=== PATIENT | male | born 1985 | race Caucasian/White ===

== ENCOUNTER 2020-01-10 09:06 | Inpatient (IN) | payer BC ==
[2020-01-10] MEDS ORDERED: SODIUM CHLORIDE 0.9% 1,000 ML IV STA (09:38)
[2020-01-10] MEDS ORDERED: MORPHINE SULFATE 4 MG/ML SYRINGE IVP STA (09:42)
[2020-01-10] MEDS ORDERED: LEVOFLOXACIN 500MG-D5W PMX 500 MG in DEXTROSE/WATER 1 100ML.BAG IVPB STA (09:53)
[2020-01-10] MEDS ORDERED: metroNIDAZOLE-NS PMX 500 MG in SALINE 1 100ML.BAG IVPB STA (09:53)
[2020-01-10 09:56] LABS: Appearance,Urine Clear (Clear); Bilirubin,Urine Negative (Negative); Blood,Urine Negative (Negative); Color,Urine Yellow; Glucose,Urine (UA) Negative (Negative); Ketones,Urine Negative (Negative); Leukocyte Esterase,Urine Negative (Negative); Nitrite,Urine Negative (Negative); PH, Urine 5.5 (5.0-8.0); Protein,Urine Trace (Negative); Specific Gravity,Urine 1.023 (1.001-1.035); Urobilinogen,Urine <2.0 mg/dL (<2.0)
[2020-01-10 10:00] LABS: Basophils % (A) 0 %; Eosinophils # (A) 0.3 k/uL (0-0.7); Eosinophils % (A) 3 %; HCT 42.8 % (39.0-53.0); HGB 14.2 gm/dL (13.0-17.5); Lymphocytes % (A) 19 %; MCH 27.5 pg (25.0-35.0); MCHC 33.2 g/dL (31.0-37.0); MCV 82.9 fL (80.0-100.0); Mean Platelet Volume 7.8; Monocytes # (A) 0.6 k/uL (0-1.0); Monocytes % (A) 6 %; Neutrophils % (A) 69 %; Platelet Count 322 k/uL (150-450); RBC 5.17 m/uL (4.30-5.90); RDW 13.3 % (11.5-15.5); WBC 10.3 k/uL (3.8-10.6)
[2020-01-10 10:07] LABS: ALT 59 U/L (4-49); AST 44 U/L (17-59); African American GFR (CKD) >90 (>60 ml/min/1.73 sqM); Albumin 4.5 g/dL (3.5-5.0); Alkaline Phosphatase 91 U/L (38-126); Amylase 35 U/L (30-110); Anion Gap 11 mmol/L; Blood Urea Nitrogen 17 mg/dL (9-20); Calcium 9.5 mg/dL (8.4-10.2); Carbon Dioxide 27 mmol/L (22-30); Chloride 99 mmol/L (98-107); Glucose 92 mg/dL (74-99); Non-African American GFR(CKD) >90 (>60 ml/min/1.73 sqM); Sodium 137 mmol/L (137-145); Total Bilirubin 0.7 mg/dL (0.2-1.3); Total Protein 8.2 g/dL (6.3-8.2)
[2020-01-10 10:10] LABS: Potassium 5.2 mmol/L (3.5-5.1)
--- NOTE | 2020-01-10 10:25 | XR ---
KUB HISTORY: Lower abdominal pain Frontal KUB submitted on 2 images Lung bases are clear. There are air-fluid levels without bowel distention. Bone mineralization is nor mal. No pathologic calcification evident. IMPRESSION: Correlate for ileus or enteritis. Follow-up as indicated.
--- NOTE | 2020-01-10 11:10 | ED ---
General Adult HPI - General Chief complaint: Abdominal Pain Stated complaint: Abd Pain Time Seen by Provider: 01/10/20 09:26 Source: patient, RN notes reviewed Mode of arrival: ambulatory Limitations: no limitations - History of Present Illness Initial comments: 34-year-old male presents to the emergency department for a chief complaint of abdominal pain times about 9 days. Patient states the pain is in the left lower pubic area. States that 6 days ago he was seen at [facility] and diagnosed with diverticulitis. States that he was given Augmentin but that pain has seemed to worsen. He denies fevers. He denies diarrhea. He does admit to mild nausea.Patient has no other complaints at this time including shortness of breath, chest pain, nausea or vomiting, headache, or visual changes. - Related Data Home Medications Medication Instructions Recorded Confirmed Amoxic-Pot Clav 875-125Mg 1 tab PO Q12HR 01/10/20 01/10/20 [Augmentin 875-125] Escitalopram [Lexapro] 10 mg PO HS 01/10/20 01/10/20 Allergies Allergy/AdvReac Type Severity Reaction Status Date / Time No Known Allergies Allergy Verified 01/10/20 10:24 Review of Systems ROS Statement: Those systems with pertinent positive or pertinent negative responses have been documented in the HPI. ROS Other: All systems not noted in ROS Statement are negative. Past Medical History Past Medical History: Hypertension History of Any Multi-Drug Resistant Organisms: None Reported Past Surgical History: No Surgical Hx Reported Past Psychological History: No Psychological Hx Reported Smoking Status: Never smoker Past Alcohol Use History: None Reported Past Drug Use History: None Reported General Exam Limitations: no limitations General appearance: alert, in no apparent distress Head exam: Present: atraumatic, normocephalic, normal inspection Eye exam: Present: normal appearance, PERRL, EOMI. Absent: scleral icterus, conjunctival injection, periorbital swelling ENT exam: Present: normal exam, mucous membranes moist Neck exam: Present: normal inspection, full ROM. Absent: tenderness, meningismus, lymphadenopathy Respiratory exam: Present: normal lung sounds bilaterally. Absent: respiratory distress, wheezes, rales, rhonchi, stridor Cardiovascular Exam: Present: regular rate GI/Abdominal exam: Present: soft, tenderness (Tenderness noted in the left lower quadrant and suprapubic areas.), normal bowel sounds. Absent: distended, guarding, rebound, rigid Neurological exam: Present: alert Course Vital Signs 01/10/20 01/10/20 09:10 12:16 Temperature 98.4 F Pulse Rate 88 82 Respiratory 19 16 Rate Blood Pressure 149/88 140/92 O2 Sat by Pulse 95 99 Oximetry Medical Decision Making - Medical Decision Making Patient presents to the emergency room for abdominal pain this has been ongoing for about 9 days. Patient had a CT 5 days ago through [facility] that showed diverticulitis. On exam patient does have left lower quadrant tenderness. Vitals are stable. CBC does show a white count of 10.3 which is stable from 5 days ago. CMP is unremarkable. CT abdomen and pelvis was obtained which showed acute sigmoid diverticulitis with submucosal 2.7 x 1.6 cm fluid collection, likely submucosal abscess. No pneumoperitoneum. Likely Reactive ileus present. Patient has been on Augmentin for 5 days outpatient. He was started on Levaquin and Flagyl through the emergency room. Dr. Whitfield was consulted who will except the admission but recommends putting sound on consult. - Lab Data Result diagrams: 01/10/20 09:38 01/10/20 09:38 Lab Results 01/10/20 01/10/20 01/10/20 Range/Units 09:38 09:38 09:38 WBC 10.3 (3.8-10.6) k/uL RBC 5.17 (4.30-5.90) m/uL Hgb 14.2 (13.0-17.5) gm/dL Hct 42.8 (39.0-53.0) % MCV 82.9 (80.0-100.0) fL MCH 27.5 (25.0-35.0) pg MCHC 33.2 (31.0-37.0) g/dL RDW 13.3 (11.5-15.5) % Plt Count 322 (150-450) k/uL Neutrophils % 69 % Lymphocytes % 19 % Monocytes % 6 % Eosinophils % 3 % Basophils % 0 % Neutrophils # 7.0 (1.3-7.7) k/uL Lymphocytes # 2.0 (1.0-4.8) k/uL Monocytes # 0.6 (0-1.0) k/uL Eosinophils # 0.3 (0-0.7) k/uL Basophils # 0.0 (0-0.2) k/uL Sodium 137 (137-145) mmol/L Potassium 5.2 H (3.5-5.1) mmol/L Chloride 99 (98-107) mmol/L Carbon Dioxide 27 (22-30) mmol/L Anion Gap 11 mmol/L BUN 17 (9-20) mg/dL Creatinine 0.73 (0.66-1.25) mg/dL Est GFR (CKD-EPI)AfAm >90 (>60 ml/min/1.73 sqM) Est GFR (CKD-EPI)NonAf >90 (>60 ml/min/1.73 sqM) Glucose 92 (74-99) mg/dL Plasma Lactic Acid Sudeep (0.7-2.0) mmol/L Calcium 9.5 (8.4-10.2) mg/dL Total Bilirubin 0.7 (0.2-1.3) mg/dL AST 44 (17-59) U/L ALT 59 H (4-49) U/L Alkaline Phosphatase 91 (38-126) U/L Total Protein 8.2 (6.3-8.2) g/dL Albumin 4.5 (3.5-5.0) g/dL Amylase 35 (30-110) U/L Lipase 27 (23-300) U/L Urine Color Yellow Urine Appearance Clear (Clear) Urine pH 5.5 (5.0-8.0) Ur Specific [place] 1.023 (1.001-1.035) Urine Protein Trace H (Negative) Urine Glucose (UA) Negative (Negative) Urine Ketones Negative (Negative) Urine Blood Negative (Negative) Urine Nitrite Negative (Negative) Urine Bilirubin Negative (Negative) Urine Urobilinogen <2.0 (<2.0) mg/dL Ur Leukocyte Esterase Negative (Negative) 01/10/20 Range/Units 09:38 WBC (3.8-10.6) k/uL RBC (4.30-5.90) m/uL Hgb (13.0-17.5) gm/dL Hct (39.0-53.0) % MCV (80.0-100.0) fL MCH (25.0-35.0) pg MCHC (31.0-37.0) g/dL RDW (11.5-15.5) % Plt Count (150-450) k/uL Neutrophils % % Lymphocytes % % Monocytes % % Eosinophils % % Basophils % % Neutrophils # (1.3-7.7) k/uL Lymphocytes # (1.0-4.8) k/uL Monocytes # (0-1.0) k/uL Eosinophils # (0-0.7) k/uL Basophils # (0-0.2) k/uL Sodium (137-145) mmol/L Potassium (3.5-5.1) mmol/L Chloride (98-107) mmol/L Carbon Dioxide (22-30) mmol/L Anion Gap mmol/L BUN (9-20) mg/dL Creatinine (0.66-1.25) mg/dL Est GFR (CKD-EPI)AfAm (>60 ml/min/1.73 sqM) Est GFR (CKD-EPI)NonAf (>60 ml/min/1.73 sqM) Glucose (74-99) mg/dL Plasma Lactic Acid Sudeep 0.7 (0.7-2.0) mmol/L Calcium (8.4-10.2) mg/dL Total Bilirubin (0.2-1.3) mg/dL AST (17-59) U/L ALT (4-49) U/L Alkaline Phosphatase (38-126) U/L Total Protein (6.3-8.2) g/dL Albumin (3.5-5.0) g/dL Amylase (30-110) U/L Lipase (23-300) U/L Urine Color Urine Appearance (Clear) Urine pH (5.0-8.0) Ur Specific [place] (1.001-1.035) Urine Protein (Negative) Urine Glucose (UA) (Negative) Urine Ketones (Negative) Urine Blood (Negative) Urine Nitrite (Negative) Urine Bilirubin (Negative) Urine Urobilinogen (<2.0) mg/dL Ur Leukocyte Esterase (Negative) Disposition Clinical Impression: Diverticulitis of intestine with abscess Disposition: ADMITTED IP TO THIS [facility] Condition: Fair Referrals: None,Stated [Primary Care Provider] - 1-2 days Time of Disposition: 12:41
--- NOTE | 2020-01-10 11:21 | CT ---
EXAMINATION TYPE: CT abdomen pelvis w con DATE OF EXAM: 01/10/2020 COMPARISON: HISTORY: Abdominal pain CT DLP: 3258 mGycm Automated exposure control for dose reduction was used. TECHNIQUE: Helical acquisition of images was performed from the lung bases through the pelvis. CONTRAST: Performed without Oral Contrast and with IV Contrast, patient injected with 100 ml mL of Isovue 300. FINDINGS: LUNG BASES: No significant abnormality is appreciated. LIVER/GB: Unremarkable morphology of the liver. No discrete masses seen. No radiopaque gallstones in the gallbladder. PANCREAS: No significant abnormality is seen. SPLEEN: Spleen is mildly enlarged measuring 14.5 cm in craniocaudal dimension. ADRENALS: No significant abnormality is seen. KIDNEYS: Kidneys enhance and excrete symmetrically without hydronephrosis. FREE AIR: No free air is visualized. ADENOPATHY: Prominent lymph nodes surrounding the sigmoid colon are described below. OSSEOUS STRUCTURES: Mild multilevel degenerative change of the spine. BOWEL: There is phlegmonous inflammatory change surrounding the sigmoid colon: Numerous sigmoid dive rticula. There is a low-density oval 1.6 x 2.7 cm area within the sigmoid colon appearing within the mucosal surface concerning for submucosal abscess. Numerous prominent surrounding multiple lymph node s are seen. Inflammatory fat stranding progresses towards the descending colon to involve a limited a mount of the descending colon. No dilated large or small bowel. Few scattered air-fluid levels in the small bowel to suggest reactive ileus. IMPRESSION: 1. ACUTE SIGMOID DIVERTICULITIS WITH SUBMUCOSAL 2.7 X 1.6 CM FLUID COLLECTION, LIKELY SUBMUCOSAL ABSC ESS. NO PNEUMOPERITONEUM. SMALL BOWEL AIR-FLUID LEVELS LIKELY REPRESENT REACTIVE ILEUS. 2. SPLENOMEGALY.
[2020-01-10] MEDS ORDERED: ONDANSETRON 4 MG/2 ML VIAL IVP PRN (12:42)
[2020-01-10] MEDS ORDERED: NALOXONE 0.4 MG/ML 1 ML VIAL IV PRN (12:42)
--- NOTE | 2020-01-10 14:12 | P.GSHP ---
<Lori Flores A - Last Filed: 01/10/20 14:07> History of Present Illness H&P Date: 01/10/20 Chief Complaint: abdominal pain CHIEF COMPLAINT: Abdominal pain HISTORY OF PRESENT ILLNESS: 34-year-old male who presented to emergency room with chief complaint of abdominal pain. Patient reports he was evaluated at [facility] approximately one week ago for abdominal pain. He was diagnosed with diverticulitis and discharged home on Augmentin. Patient states he has been taking his prescription but his pain has not improved. Patient states his pain comes and goes but when he is having pain is it usually 8/10. Pain is localized to middle and left lower quadrants. Denies fever or chills. Denies nausea or vomiting. He reports mixed diarrhea and constipation over the last week. He reports his first episode of diverticulitis was in August 2019 and patient was hospitalized near [place] where he resides. He denies ever having a colonoscopy. PAST MEDICAL HISTORY: See list. PAST SURGICAL HISTORY: See list. SOCIAL HISTORY: No illicit drug use. REVIEW OF SYSTEMS: CONSTITUTIONAL: Denies fever or chills. HEENT: Denies blurred vision, vision changes, or eye pain. Denies hemoptysis CARDIOVASCULAR: Denies chest pain or pressure. RESPIRATORY: No shortness of breath. GASTROINTESTINAL: Refer to HPI for pertinent findings HEMATOLOGIC: Denies bleeding disorders. GENITOURINARY: Denies any blood in urine. SKIN: Denies pruitis. Denies rash. PHYSICAL EXAM: VITAL SIGNS: Reviewed. GENERAL: Well-developed in no acute distress. HEENT: No sclera icterus. Extraocular movements grossly intact. Moist buccal mucosa. Head is atraumatic, normocephalic. ABDOMEN: Soft. Nondistended. Tenderness upon palpation of left lower quadrant. NEUROLOGIC: Alert and oriented. Cranial nerves II through XII grossly intact. LABORATORY DATA: WBC 10.3. Hemoglobin 14.2. Platelet count 322. Sodium 137. Potassium 5.2. BUN 17. Creatinine 0.73. Lactic acid 0.7 IMAGING: CT abdomen and pelvis: Acute sigmoid diverticulitis with submucosal 2.7 x 1.6 cm fluid collection likely submucosal abscess. No pneumoperitoneum. Small bowel air-fluid levels are present reactive ileus. Cytomegaly. ASSESSMENT: 1. Abdominal pain 2. Acute diverticulitis with abscess formation PLAN: NPO except ice chips Continue IV antibiotics Patient will be re-evaluated by Dr. Whitfield this afternoon Nurse practitioner note has been reviewed by physician. Signing provider agrees with the documented findings, assessment, and plan of care. Past Medical History Past Medical History: Hypertension History of Any Multi-Drug Resistant Organisms: None Reported Past Surgical History: No Surgical Hx Reported Past Psychological History: No Psychological Hx Reported Smoking Status: Never smoker Past Alcohol Use History: None Reported Past Drug Use History: None Reported Medications and Allergies Home Medications Medication Instructions Recorded Confirmed Type Amoxic-Pot Clav 875-125Mg 1 tab PO Q12HR 01/10/20 01/10/20 History [Augmentin 875-125] Escitalopram [Lexapro] 10 mg PO HS 01/10/20 01/10/20 History Allergies Allergy/AdvReac Type Severity Reaction Status Date / Time No Known Allergies Allergy Verified 01/10/20 10:24 Surgical - Exam Vital Signs Temp Pulse Resp BP Pulse Ox 98.4 F 88 19 149/88 95 01/10/20 09:10 01/10/20 09:10 01/10/20 09:10 01/10/20 09:10 01/10/20 09:10 Results - Labs 01/10/20 09:38 01/10/20 09:38 Abnormal Lab Results - Last 24 Hours (Table) 01/10/20 01/10/20 Range/Units 09:38 09:38 Potassium 5.2 H (3.5-5.1) mmol/L ALT 59 H (4-49) U/L Urine Protein Trace H (Negative) Diabetes panel 01/10/20 Range/Units 09:38 Sodium 137 (137-145) mmol/L Potassium 5.2 H (3.5-5.1) mmol/L Chloride 99 (98-107) mmol/L Carbon Dioxide 27 (22-30) mmol/L BUN 17 (9-20) mg/dL Creatinine 0.73 (0.66-1.25) mg/dL Glucose 92 (74-99) mg/dL Calcium 9.5 (8.4-10.2) mg/dL AST 44 (17-59) U/L ALT 59 H (4-49) U/L Alkaline Phosphatase 91 (38-126) U/L Total Protein 8.2 (6.3-8.2) g/dL Albumin 4.5 (3.5-5.0) g/dL Calcium panel 01/10/20 Range/Units 09:38 Calcium 9.5 (8.4-10.2) mg/dL Albumin 4.5 (3.5-5.0) g/dL Pituitary panel 01/10/20 Range/Units 09:38 Sodium 137 (137-145) mmol/L Potassium 5.2 H (3.5-5.1) mmol/L Chloride 99 (98-107) mmol/L Carbon Dioxide 27 (22-30) mmol/L BUN 17 (9-20) mg/dL Creatinine 0.73 (0.66-1.25) mg/dL Glucose 92 (74-99) mg/dL Calcium 9.5 (8.4-10.2) mg/dL Adrenal panel 01/10/20 Range/Units 09:38 Sodium 137 (137-145) mmol/L Potassium 5.2 H (3.5-5.1) mmol/L Chloride 99 (98-107) mmol/L Carbon Dioxide 27 (22-30) mmol/L BUN 17 (9-20) mg/dL Creatinine 0.73 (0.66-1.25) mg/dL Glucose 92 (74-99) mg/dL Calcium 9.5 (8.4-10.2) mg/dL Total Bilirubin 0.7 (0.2-1.3) mg/dL AST 44 (17-59) U/L ALT 59 H (4-49) U/L Alkaline Phosphatase 91 (38-126) U/L Total Protein 8.2 (6.3-8.2) g/dL Albumin 4.5 (3.5-5.0) g/dL <Robert Whitfield - Last Filed: 01/10/20 17:22> History of Present Illness As above. CAT scan reveals diverticulitis with probable submucosal abscess. No free air. Continue broad-spectrum antibiotics. Keep nothing by mouth for now. Surgical - Exam Vital Signs Temp Pulse Resp BP Pulse Ox 98.4 F 88 19 149/88 95 01/10/20 09:10 01/10/20 09:10 01/10/20 09:10 01/10/20 09:10 01/10/20 09:10 Results - Labs 01/10/20 09:38 01/10/20 09:38 Abnormal Lab Results - Last 24 Hours (Table) 01/10/20 01/10/20 Range/Units 09:38 09:38 Potassium 5.2 H (3.5-5.1) mmol/L ALT 59 H (4-49) U/L Urine Protein Trace H (Negative) Diabetes panel 01/10/20 Range/Units 09:38 Sodium 137 (137-145) mmol/L Potassium 5.2 H (3.5-5.1) mmol/L Chloride 99 (98-107) mmol/L Carbon Dioxide 27 (22-30) mmol/L BUN 17 (9-20) mg/dL Creatinine 0.73 (0.66-1.25) mg/dL Glucose 92 (74-99) mg/dL Calcium 9.5 (8.4-10.2) mg/dL AST 44 (17-59) U/L ALT 59 H (4-49) U/L Alkaline Phosphatase 91 (38-126) U/L Total Protein 8.2 (6.3-8.2) g/dL Albumin 4.5 (3.5-5.0) g/dL Calcium panel 01/10/20 Range/Units 09:38 Calcium 9.5 (8.4-10.2) mg/dL Albumin 4.5 (3.5-5.0) g/dL Pituitary panel 01/10/20 Range/Units 09:38 Sodium 137 (137-145) mmol/L Potassium 5.2 H (3.5-5.1) mmol/L Chloride 99 (98-107) mmol/L Carbon Dioxide 27 (22-30) mmol/L BUN 17 (9-20) mg/dL Creatinine 0.73 (0.66-1.25) mg/dL Glucose 92 (74-99) mg/dL Calcium 9.5 (8.4-10.2) mg/dL Adrenal panel 01/10/20 Range/Units 09:38 Sodium 137 (137-145) mmol/L Potassium 5.2 H (3.5-5.1) mmol/L Chloride 99 (98-107) mmol/L Carbon Dioxide 27 (22-30) mmol/L BUN 17 (9-20) mg/dL Creatinine 0.73 (0.66-1.25) mg/dL Glucose 92 (74-99) mg/dL Calcium 9.5 (8.4-10.2) mg/dL Total Bilirubin 0.7 (0.2-1.3) mg/dL AST 44 (17-59) U/L ALT 59 H (4-49) U/L Alkaline Phosphatase 91 (38-126) U/L Total Protein 8.2 (6.3-8.2) g/dL Albumin 4.5 (3.5-5.0) g/dL
[2020-01-10] MEDS: HYDROmorphone 0.5 MG/0.5 ML SYRINGE IVP PRN (18:13)
--- NOTE | 2020-01-10 18:37 | P.CONS ---
History of Present Illness - Reason for Consult Consult date: 01/10/20 Diverticulitis Requesting physician: Robert Whitfield - Chief Complaint Abdominal pain - History of Present Illness 34-year-old male with PMH of diverticulitis, hypertension and depression presents the ED for abdominal pain. Patient states that the abdominal pain has been ongoing for the past 2 weeks. Abdominal pain is periumbilical. Pain is 7- 8 out of 10 in severity. Pain is sharp and throbbing. Pain was persistently getting worse which prompted the patient to come to the ED. Patient reports constipation that has been ongoing for the last couple of days. He denies any headache, lower teresa edema, nausea or vomiting, fever or chills, cough, chest pain, shortness of breath, palpitations, changes in urination. No changes in appetite or weight. He denies any dizziness, numbness/weakness/tingling of the extremities. In the ED, his vital signs are stable except for slightly elevated blood pressure. CBC was unremarkable. CMP showed potassium of 5.2 and ALT 59. Urinalysis showed trace proteins. CT abdomen pelvis shows sigmoid diverticulitis with 2.71.6 cm fluid collection likely submucosal abscess and splenomegaly. Patient is admitted to surgery for diverticulitis and submucosal abscess. Review of Systems Pertinent positives and negatives as discussed in HPI, a complete review of systems was performed and all other systems are negative. Past Medical History Past Medical History: Hypertension History of Any Multi-Drug Resistant Organisms: None Reported Past Surgical History: No Surgical Hx Reported Past Psychological History: No Psychological Hx Reported Smoking Status: Never smoker Past Alcohol Use History: None Reported Past Drug Use History: None Reported Medications and Allergies Home Medications Medication Instructions Recorded Confirmed Type Amoxic-Pot Clav 875-125Mg 1 tab PO Q12HR 01/10/20 01/10/20 History [Augmentin 875-125] Escitalopram [Lexapro] 10 mg PO HS 01/10/20 01/10/20 History Allergies Allergy/AdvReac Type Severity Reaction Status Date / Time No Known Allergies Allergy Verified 01/10/20 10:24 Physical Exam Vitals: Vital Signs Temp Pulse Pulse Resp BP BP Pulse Ox 01/10/20 15:00 98.1 F 81 16 148/78 96 01/10/20 13:07 98.4 F 82 16 126/85 97 01/10/20 12:16 82 16 140/92 99 03/19/20 09:10 98.4 F 88 19 149/88 95 Intake and Output 01/10/20 01/10/20 01/10/20 06:59 14:59 22:59 Intake Total 100 Balance 100 Intake: Intake, IV Titration 100 Amount metroNIDAZOLE-NS PMX 500 100 mg In Saline 1 100ml.bag @ 100 mls/hr IVPB Q8H [facility] Rx#:[id number] Other: Weight 166.196 kg General: [non toxic], [no distress], [appears at stated age] Derm: [warm], [dry] Head: [atraumatic], [normocephalic], [symmetric] Eyes: [EOMI], [no lid lag], [anicteric sclera] Mouth: [no lip lesion], [mucus membranes moist] Cardiovascular: [S1S2 reg], [no murmur], [positive DP pulse bilateral], Lungs: [CTA bilateral], [no rhonchi, no rales] , [no accessory muscle use] Abdominal: [soft], [tenderness to deep palpation in the right lower quadrant without rebound], [no guarding], [no appreciable organomegaly] Ext: [no gross muscle atrophy], [no edema], [no contractures] Neuro: [ CN II-XI grossly intact], [no focal neuro deficits] Psych: [Alert], [oriented], [appropriate affect] Results CBC & Chem 7: 01/10/20 09:38 01/10/20 09:38 Labs: Abnormal Lab Results - Last 24 Hours (Table) 01/10/20 01/10/20 Range/Units 09:38 09:38 Potassium 5.2 H (3.5-5.1) mmol/L ALT 59 H (4-49) U/L Urine Protein Trace H (Negative) Assessment and Plan Assessment: Hypertension Hyperkalemia Elevated ALT Depression Diverticulitis with submucosal abscess Patient has elevated BP of 148/78. He is not on any antihypertensive medication and will be monitored at this time. His potassium of 5.2 is slightly hemolyzed. We will repeat BMP tomorrow morning. Restart Lexapro for history of depression. Patient with elevated ALT of 59 of unknown significance. This will be monitored at this time. Patient has been started on levofloxacin and Flagyl for diverticulitis. He will be given Zofran as needed for nausea or vomiting. He has been started on Protonix IV daily. He has been started on normal saline at 120 mL per hour. He is nothing by mouth. General surgery is onboard. Patient is pending clinical improvement. Thank you for this consult. Please call with any additional questions or concerns.
[2020-01-10] MEDS: metroNIDAZOLE-NS PMX 500 MG in SALINE 1 100ML.BAG IVPB SCH (20:09)
[2020-01-10] MEDS: ESCITALOPRAM 10 MG TAB PO SCH (20:09)
[2020-01-10] MEDS: SODIUM CHLORIDE 0.9% 1,000 ML IV SCH ×2 (20:14→21:07)
[2020-01-11] MEDS: metroNIDAZOLE-NS PMX 500 MG in SALINE 1 100ML.BAG IVPB SCH ×3 (03:45→19:09)
[2020-01-11] MEDS: SODIUM CHLORIDE 0.9% 1,000 ML IV SCH ×3 (03:47→20:21)
[2020-01-11 07:12] LABS: African American GFR (CKD) >90 (>60 ml/min/1.73 sqM); Anion Gap 9 mmol/L; Blood Urea Nitrogen 14 mg/dL (9-20); Carbon Dioxide 27 mmol/L (22-30); Chloride 100 mmol/L (98-107); Glucose 107 mg/dL (74-99); Non-African American GFR(CKD) >90 (>60 ml/min/1.73 sqM); Potassium 4.4 mmol/L (3.5-5.1); Sodium 136 mmol/L (137-145)
[2020-01-11] MEDS: LEVOFLOXACIN 750MG-D5W PMX 750 MG in DEXTROSE/WATER 1 150ML.BAG IVPB SCH (07:39)
[2020-01-11] MEDS: PANTOPRAZOLE 40 MG/10 ML VIAL IVP SCH (07:39)
[2020-01-11] MEDS: HYDROmorphone 0.5 MG/0.5 ML SYRINGE IVP PRN ×2 (12:39→19:10)
--- NOTE | 2020-01-11 13:23 | P.PN ---
Subjective Progress Note Date: 01/11/20 Principal diagnosis: Diverticulitis Patient was seen and examined. No acute events overnight. Patient reports pain that is well improved since admission. Pain is 5 out of 10 in severity. He reports no nausea or vomiting. No fever or chills. He denies any chest pain, shortness of breath or palpitations. Objective - Vital Signs Vital signs: Vital Signs Temp 97.4 F L 01/11/20 07:00 Pulse 85 01/11/20 07:00 Resp 18 01/11/20 07:00 BP 133/88 01/11/20 07:00 Pulse Ox 93 L 01/11/20 07:00 Intake & Output 01/10/20 01/11/20 01/11/20 18:59 06:59 18:59 Intake Total 100 30 Balance 100 30 Weight 166.196 kg Intake: Intake, IV Titration 100 Amount metroNIDAZOLE-NS PMX 500 100 mg In Saline 1 100ml.bag @ 100 mls/hr IVPB Q8H [facility] Rx#:[id number] Oral 30 Other: Voiding Method Toilet # Voids 3 # Bowel Movements 1 - Exam General: [non toxic], [no distress], [appears at stated age] Derm: [warm], [dry] Head: [atraumatic], [normocephalic], [symmetric] Eyes: [EOMI], [no lid lag], [anicteric sclera] Mouth: [no lip lesion], [mucus membranes moist] Cardiovascular: [S1S2 reg], [no murmur], [positive DP pulse bilateral], Lungs: [CTA bilateral], [no rhonchi, no rales] , [no accessory muscle use] Abdominal: [soft], [tenderness to deep palpation in the right lower quadrant without rebound], [no guarding], [no appreciable organomegaly] Ext: [no gross muscle atrophy], [no edema], [no contractures] Neuro: [no focal neuro deficits] Psych: [Alert], [oriented], [appropriate affect] - Labs CBC & Chem 7: 01/10/20 09:38 01/11/20 06:47 Labs: Abnormal Lab Results - Last 24 Hours (Table) 01/11/20 Range/Units 06:47 Sodium 136 L (137-145) mmol/L Glucose 107 H (74-99) mg/dL Microbiology - Last 24 Hours (Table) 01/10/20 10:06 Blood Culture - Preliminary Blood No Growth after 24 hours Assessment and Plan Assessment: Hypertension Elevated ALT Depression Diverticulitis with submucosal abscess Patient has elevated BP of 133/78. He is not on any antihypertensive medication and will be monitored at this time. Restart Lexapro for history of depression. Patient with elevated ALT of 59 of unknown significance. This will be monitored at this time. Patient has been started on levofloxacin and Flagyl for diverticulitis. He will be given Zofran as needed for nausea or vomiting. He has been started on Protonix IV daily. He has been started on normal saline at 120 mL per hour. Blood cultures have been negative at 24 hours. He is nothing by mouth. General surgery is onboard. Patient is pending clinical improvement. Thank you for this consult. Please call with any additional questions or concerns.
--- NOTE | 2020-01-11 13:28 | P.PN ---
Subjective Progress Note Date: 01/11/20 Principal diagnosis: Sigmoid diverticulitis Patient's states his pain is improved today. Was a 7 out of 10 yesterday and a 6 out of 10 today. He did have a small stool. No nausea or vomiting. Location of pain is unchanged. No CBC today. No significant fevers. Objective - Vital Signs Vital signs: Vital Signs Temp 97.4 F L 01/11/20 07:00 Pulse 85 01/11/20 07:00 Resp 18 01/11/20 07:00 BP 133/88 01/11/20 07:00 Pulse Ox 93 L 01/11/20 07:00 Intake & Output 01/10/20 01/11/20 01/11/20 18:59 06:59 18:59 Intake Total 100 30 Balance 100 30 Weight 166.196 kg Intake: Intake, IV Titration 100 Amount metroNIDAZOLE-NS PMX 500 100 mg In Saline 1 100ml.bag @ 100 mls/hr IVPB Q8H [facility] Rx#:[id number] Oral 30 Other: Voiding Method Toilet # Voids 3 # Bowel Movements 1 - Exam Abdomen: Soft, nondistended, mild left lower quadrant tenderness - Labs CBC & Chem 7: 01/10/20 09:38 01/11/20 06:47 Labs: Abnormal Lab Results - Last 24 Hours (Table) 01/11/20 Range/Units 06:47 Sodium 136 L (137-145) mmol/L Glucose 107 H (74-99) mg/dL Microbiology - Last 24 Hours (Table) 01/10/20 10:06 Blood Culture - Preliminary Blood No Growth after 24 hours Assessment and Plan (1) Diverticulitis of intestine with abscess Narrative/Plan: Overall patient improving but somewhat slowly. Will advance diet. Continue IV antibiotics. We'll send prescriptions to his local pharmacy with anticipation for discharge tomorrow. Recheck CBC tomorrow. Current Visit: Yes Status: Acute Code(s): K57.80 - DVTRCLI OF INTEST, PART UNSP, W PERF AND ABSCESS W/O BLEED SNOMED Code(s): 076473478
[2020-01-11] MEDS: ESCITALOPRAM 10 MG TAB PO SCH (20:18)
[2020-01-12] MEDS: metroNIDAZOLE-NS PMX 500 MG in SALINE 1 100ML.BAG IVPB SCH ×2 (03:03→11:51)
[2020-01-12] MEDS: SODIUM CHLORIDE 0.9% 1,000 ML IV SCH (05:29)
[2020-01-12 06:56] LABS: Basophils % (A) 0 %; Eosinophils # (A) 0.3 k/uL (0-0.7); Eosinophils % (A) 3 %; HCT 41.8 % (39.0-53.0); HGB 13.5 gm/dL (13.0-17.5); Lymphocytes # (A) 1.6 k/uL (1.0-4.8); Lymphocytes % (A) 16 %; MCH 27.2 pg (25.0-35.0); MCHC 32.2 g/dL (31.0-37.0); MCV 84.5 fL (80.0-100.0); Mean Platelet Volume 6.8; Monocytes # (A) 0.5 k/uL (0-1.0); Monocytes % (A) 5 %; Neutrophils # (A) 7.8 k/uL (1.3-7.7); Neutrophils % (A) 74 %; Platelet Count 354 k/uL (150-450); RBC 4.95 m/uL (4.30-5.90); RDW 13.4 % (11.5-15.5); WBC 10.5 k/uL (3.8-10.6)
[2020-01-12 08:21] VITALS: BP 128/87; PULSE 78; RESP 18; TEMP 98.4
[2020-01-12] MEDS: PANTOPRAZOLE 40 MG/10 ML VIAL IVP SCH (08:46)
[2020-01-12] MEDS: LEVOFLOXACIN 750MG-D5W PMX 750 MG in DEXTROSE/WATER 1 150ML.BAG IVPB SCH (08:46)
--- NOTE | 2020-01-12 10:27 | P.PN ---
Subjective Progress Note Date: 01/12/20 Principal diagnosis: Diverticulitis Patient was seen and examined. No acute events overnight. Patient reports pain that is well improved since admission. He reports no nausea or vomiting. No fever or chills. He denies any chest pain, shortness of breath or palpitations. Objective - Vital Signs Vital signs: Vital Signs Temp 98.4 F 01/12/20 07:00 Pulse 78 01/12/20 07:00 Resp 18 01/12/20 07:00 BP 128/87 01/12/20 07:00 Pulse Ox 94 L 01/12/20 07:00 Intake & Output 01/11/20 01/12/20 01/12/20 18:59 06:59 18:59 Other: Voiding Method Toilet # Voids 1 # Bowel Movements 1 - Exam General: [non toxic], [no distress], [appears at stated age] Derm: [warm], [dry] Head: [atraumatic], [normocephalic], [symmetric] Eyes: [EOMI], [no lid lag], [anicteric sclera] Mouth: [no lip lesion], [mucus membranes moist] Cardiovascular: [S1S2 reg], [no murmur], [positive DP pulse bilateral], Lungs: [CTA bilateral], [no rhonchi, no rales] , [no accessory muscle use] Abdominal: [soft], [nontender to palpation], [no guarding], [no appreciable organomegaly] Ext: [no gross muscle atrophy], [no edema], [no contractures] Neuro: [no focal neuro deficits] Psych: [Alert], [oriented], [appropriate affect] - Labs CBC & Chem 7: 01/12/20 06:23 01/11/20 06:47 Labs: Abnormal Lab Results - Last 24 Hours (Table) 01/12/20 Range/Units 06:23 Neutrophils # 7.8 H (1.3-7.7) k/uL Microbiology - Last 24 Hours (Table) 01/10/20 10:06 Blood Culture - Preliminary Blood No Growth after 24 hours Assessment and Plan Assessment: Hypertension Elevated ALT Depression Diverticulitis with submucosal abscess Patient has elevated BP of 128/87. He is not on any antihypertensive medication and will be monitored at this time. Restart Lexapro for history of depression. Patient with elevated ALT of 59 of unknown significance. This will be monitored at this time. Patient has been started on levofloxacin and Flagyl for diverticulitis. He has been started on Protonix IV daily. Blood cultures have been negative at 24 hours. General surgery is onboard. Patient has improved and is hemodynamically stable. There are plans to possibly discharge patient home on oral antibiotics. He is medically cleared for discharge. Thank you for this consultation. Please call with any additional questions or concerns.
--- NOTE | 2020-01-12 11:25 | P.PN ---
Progress Note - Text Progress Note Date: 01/12/20 Patient states he feels better. He wishes to go home. He has had several bowel movements. His pain is a 4 out of 10. On exam his vital signs are stable. His abdomen soft. Patiently discharged home. He will follow Dr. Whitfield next week.
== END 2020-01-12 14:18 | disposition home or self-care (01) | DRG 392 ==
LOC: EC 09:06 → 4SSUR 12:19
PROVIDERS: ADMIT Surgery; ATTEND Surgery
DX: K57.20 Diverticulitis of large intestine with perforation and abscess without bleeding (principal); I10 Essential (primary) hypertension; F32.9 Major depressive disorder, single episode, unspecified; E87.5 Hyperkalemia
CPT/HCPCS: 36415; 74018; 74177; 80048; 80053; 81003; 82150; 83605; 83690; 85025; 87040; 96365; 96366; 96367; 96375; 99285